=== PATIENT | female | born 1930 | race American Indian/Alaskan Native ===

== ENCOUNTER 2017-04-04 09:57 | Outpatient (CLI) | payer MEDICARE ==
[2017-04-04 10:48] LABS: Blood Urea Nitrogen 11 mg/dL (7-17)
[2017-04-04] MEDS ORDERED: NACL ONE (11:02)
--- NOTE | 2017-04-04 11:50 | Cat Scan Report ---
CT CHEST WITH AND WITHOUT CONTRAST History: Elevated right hemidiaphragm, abnormal chest x-ray. Technique: Helical CT before and after IV contrast. Sagittal and coronal reformatted images. Findings: Chest x-ray dated 11/16/16 was reviewed. 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 The posterior right hemidiaphragm is normal in position. The left hemidiaphragm is normal. 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 Minimal segmental atelectasis is noted at the right lung base, otherwise, the lungs are clear. No significant parenchymal lung disease. No infiltrate, pleural effusion or pneumothorax. Mild cardiomegaly is suspected. No pericardial effusion. The mediastinal vessels are patent and normal caliber. The thyroid gland, tracheobronchial tree and esophagus are within normal limits. No thoracic mass or adenopathy is detected. No suspicious bony lesion. Scoliosis and degenerative changes are noted. Impression: Eventration of the right anterior hemidiaphragm. See above. Scoliosis and degenerative changes in the thoracic spine. Minor segmental atelectasis at the right lung base.
== END 2017-04-04 09:58 | disposition home or self-care (01) ==
LOC: CT 09:57
PROVIDERS: ATTEND Internal Medicine
DX: J98.11 Atelectasis (principal); J98.6 Disorders of diaphragm; M47.894 Other spondylosis, thoracic region; M41.84 Other forms of scoliosis, thoracic region; J44.1 Chronic obstructive pulmonary disease with (acute) exacerbation; R93.8 Abnormal findings on diagnostic imaging of other specified body structures
CPT/HCPCS: 36415; 71270; 82565; 84520; Q9967